=== PATIENT | female | born 1960 | race Caucasian/White ===

== ENCOUNTER 2017-10-02 06:33 | Day surgery (SDC) | payer BC ==
[2017-10-02] MEDS ORDERED: Sodium Chloride 0.9% 1,000 ML IV SCH (07:00)
[2017-10-02] MEDS ORDERED: fentaNYL 100 MCG/2 ML SDV ONE (07:33)
[2017-10-02] MEDS ORDERED: Midazolam 1 MG/ML 2 ML SDV ONE (07:33)
[2017-10-02] MEDS ORDERED: Propofol 200 MG/20 ML SDV ONE (07:33)
[2017-10-02 09:48] VITALS: BP 116/63
--- NOTE | 2017-10-02 17:52 | DISCH ---
DISCHARGE DIAGNOSES: 1. Cholecystitis. 2. Cholelithiasis. 3. Choledocholithiasis. SUMMARY OF HOSPITAL COURSE: A pleasant 57-year-old female had elevated bilirubin, alkaline phosphatase, and liver function tests. The patient was found to have multiple stones in her common bile duct and these were able to extracted laparoscopically. On postoperative day 1, the patient's bilirubin had returned to normal. Liver function tests, AST, and ALT, along with alk phos had also returned to normal/significantly improved. Her pain is well controlled. She has no nausea, vomiting, shortness of breath, or chest pain. FOLLOWUP: Follow up with Surgery in 7 to 14 days. ACTIVITY: No lifting greater than 30 pounds x30 days. DISCHARGE MEDICATIONS: Please see MAR, but include [place] for pain. ADDITIONAL DIAGNOSIS DURING THIS HOSPITALIZATION: None. ADDITIONAL CONSULTATIONS: None.
--- NOTE | 2017-10-02 18:22 | PN ---
DATE OF SERVICE: 10/02/2017 SUBJECTIVE: The patient is doing well. Pain is well controlled. No nausea, vomiting, shortness of breath, or chest pain. OBJECTIVE: VITAL SIGNS: Stable. CARDIOVASCULAR: Regular rhythm and rate. RESPIRATORY: Lungs clear to auscultation bilaterally. ABDOMEN: Incision is healing well. LABORATORY RESULTS: Returned to normal bilirubin. ASSESSMENT: Status post laparoscopic common bile duct exploration and laparoscopic cholecystectomy. PLAN: We will discharge the patient today. We discussed diet and activity. Followup signs and symptoms of complications and the role of the emergency room. Zuhair Beverly MD /[id number]
--- NOTE | 2017-10-04 14:43 | OR ---
DATE OF PROCEDURE: 10/02/2017 PROCEDURE: Colonoscopy. FINDINGS: Normal colonoscopy. PREOPERATIVE DIAGNOSIS: Screening colonoscopy. POSTOPERATIVE DIAGNOSIS: Screening colonoscopy. RISKS: Risks, benefits, alternatives, including, but not limited to infection, bleeding, and perforation were explained to the patient. PROCEDURE IN DETAIL: The patient was placed in left lateral decubitus position. Digital rectal exam was performed without abnormality. Scope was introduced and advanced atraumatically to the ileocecal valve. The scope was brought back to the ascending, transverse, descending colon, and retroflexed. No evidence of old or new blood. No masses. No polyps. No diverticulosis. The patient tolerated the procedure well. ADDRESS: BODY: I am writing this letter in regard to your recent colonoscopy. As we discussed after the procedure, your colonoscopy was normal. There was no evidence of polyps, blood vessel problems or cancer. You will need another colonoscopy in 8 years, as new polyps can occur. We will send you a reminder letter in approximately 8 years, but it is your responsibility to arrange the repeat colonoscopy with your primary care physician, as people move and addresses change, etc. Also, please keep in mind no test is perfect and colonoscopies are no exception. In fact, they can miss up to 10 percent of positive findings including colon cancer. I tell you this not to scare you but to protect you. What to look for is ongoing bleeding, severe changes in bowel function (not occasional diarrhea or constipation) and unintentional weight loss. Again I don't think you will have any problems I just want you to be safe. One last thing I recommend is you should be trying to eat a healthy diet that is high in fiber and low in fat. It is important to eat more fruits and vegetables, avoid smoking, limit alcohol intake, increase exercise, and increase calcium and folate intake. Foods that are rich in calcium include most dairy products, for example, milk and cheese. Foods that are rich in folate are chickpeas, kidney beans, and spinach. If you have any questions, please give me or your primary doctor a call and thank you for allowing me to be your surgeon. Zuhair Beverly MD /[id number]
== END 2017-10-02 09:51 | disposition home or self-care (01) ==
LOC: JP.SDS 06:33
PROVIDERS: ATTEND Surgery
DX: Z12.11 Encounter for screening for malignant neoplasm of colon (principal); K80.10 Calculus of gallbladder with chronic cholecystitis without obstruction; Z90.49 Acquired absence of other specified parts of digestive tract
CPT/HCPCS: 45378; J2250; J2704; J3010; J7040

== ENCOUNTER 2020-01-12 17:15 | Emergency (ER) | payer BC ==
[2020-01-12 17:34] VITALS: BP 128/70; PULSE 108
[2020-01-12] MEDS ORDERED: Acetaminophen/oxyCODONE 325-5 MG Tab PO STA (17:43)
--- NOTE | 2020-01-12 17:52 | EDM.PDOC ---
ED HPI GENERAL MEDICAL PROBLEM - General Chief Complaint: Genitourinary Problem Stated Complaint: KIDNEY OR BLADDER INFECTION?? Time Seen by Provider: 01/12/20 17:35 Source of Information: Reports: Patient, Old Records, RN History Limitations: Reports: No Limitations - History of Present Illness INITIAL COMMENTS - FREE TEXT/NARRATIVE: 59 yo female here with R flank pain and some bladder pressure. Is not aware of fever. No burning. No nausea. Is taking more Aleve than recommended to control the pain. Sx's began yesterday. 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 Pain Score (Numeric/FACES): 5 - Related Data Allergies Allergy/AdvReac Type Severity Reaction Status Date / Time acetaminophen [From [place]] AdvReac Nausea Verified 01/12/20 17:26 hydrocodone bitartrate AdvReac Nausea Verified 01/12/20 17:26 [From [place]] Home Meds: Home Meds Cholecalciferol (Vitamin D3) [Vitamin D3] 2,000 unit PO BID 08/25/15 [History] Citalopram Hydrobromide [Celexa] 40 mg PO DAILY 08/25/15 [History] Gabapentin [Neurontin] 600 mg PO TID 08/25/15 [History] Ibuprofen [Motrin] 800 mg PO Q8H PRN 08/25/15 [History] Levothyroxine Sodium [Synthroid] 112 mcg PO ACBREAKFAST 08/25/15 [History] Multivitamin [Multi-Vitamin Daily] 1 tab PO DAILY 08/25/15 [History] [place]-3 Fatty Acids [Fish Oil] 300 mg PO DAILY 08/25/15 [History] Cholecalciferol (Vitamin D3) [Vitamin D] 2 tab PO DAILY 09/27/17 [History] Vitamin B Complex [B Complex] 1 tab PO DAILY 09/27/17 [History] Naproxen Sodium [Aleve] 440 mg PO PRN 01/12/20 [History] Past Medical History HEENT History: Reports: Impaired 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: Musculoskeletal History: Reports: Arthritis Other Musculoskeletal History: back surgery x 3 Psychiatric History: Reports: Depression Endocrine/Metabolic History: Reports: Hypothyroidism - Infectious Disease History Infectious Disease History: Reports: Chicken Pox - Past Surgical History Head Surgeries/Procedures: Reports: None HEENT Surgical History: Reports: Tonsillectomy GI Surgical History: Reports: Appendectomy Female Surgical History: Reports: Hysterectomy Other Female Surgeries/Procedures: bladder repair Endocrine Surgical History: Reports: Thyroid Biopsy Other Neurological Surgeries/Procedures: back surgery x 2 Musculoskeletal Surgical History: Reports: None Dermatological Surgical History: Reports: None Social & Family History - Family History Family Medical History: Noncontributory - Tobacco Use Smoking Status *Q: Never Smoker - Caffeine Use Caffeine Use: Reports: Coffee, Soda - Recreational Drug Use Recreational Drug Use: No ED ROS GENERAL - Review of Systems Review Of Systems: See Below Constitutional: Reports: No Symptoms HEENT: Reports: No Symptoms Respiratory: Reports: No Symptoms Cardiovascular: Reports: No Symptoms GI/Abdominal: Reports: No Symptoms : Reports: Flank Pain (Right), Other (bladder pressure) Skin: Reports: No Symptoms ED EXAM, RENAL/ - Physical Exam Exam: See Below Exam Limited By: No Limitations General Appearance: Alert, WD/WN, No Apparent Distress Eye Exam: Bilateral Eye: Normal Inspection Ears: Hearing Grossly Normal Nose: Normal Inspection, No Blood Throat/Mouth: Normal Lips, Normal Voice, No Airway Compromise Head: Atraumatic, Normocephalic Neck: Normal Inspection Respiratory/Chest: No Respiratory Distress, Lungs Clear, Normal Breath Sounds, No Accessory Muscle Use Cardiovascular: Regular Rate, Rhythm Back Exam: No: CVA Tenderness (R), CVA Tenderness (L) Extremities: Normal Inspection Neurological: Alert, Oriented, CN II-XII Intact, Normal Cognition, No Motor/ Sensory Deficits Psychiatric: Normal Affect, Normal Mood Skin Exam: Warm, Dry, Intact, Normal Color, No Rash Course - Vital Signs Last Recorded V/S: Last Vital Signs Temp 36.4 C 01/12/20 17:32 Pulse 108 H 01/12/20 17:32 Resp 12 01/12/20 17:32 BP 128/70 01/12/20 17:32 Pulse Ox 99 01/12/20 17:32 - Orders/Labs/Meds Orders: Active Orders 24 hr Category Date Time Status CULTURE URINE [RM] Stat Lab 01/12/20 17:44 Ordered Labs: Laboratory Tests 01/12/20 Range/Units 17:26 Urine Color Yellow (YELLOW) Urine Appearance Cloudy A (CLEAR) Urine pH 6.0 (5.0-8.0) Ur Specific [place] <= 1.005 L (1.008-1.030) Urine Protein Negative (NEGATIVE) mg/dL Urine Glucose (UA) Negative (NEGATIVE) mg/dL Urine Ketones Negative (NEGATIVE) mg/dL Urine Occult Blood Moderate H (NEGATIVE) Urine Nitrite Positive H (NEGATIVE) Urine Bilirubin Negative (NEGATIVE) Urine Urobilinogen 0.2 (0.2-1.0) EU/dL Ur Leukocyte Esterase Large H (NEGATIVE) Urine RBC 0-5 (0-5) Urine WBC 30-40 H (0-5) Ur Epithelial Cells Many Amorphous Sediment Few Urine Bacteria Many Urine Mucus Not seen Meds: Medications Discontinued Medications Generic Name Dose Route Start Last Admin Trade Name Freq PRN Reason Stop Dose Admin Oxycodone/Acetaminophen 1 tab 01/12/20 17:43 Percocet 325-5 Mg PO 01/12/20 17:44 ONETIME STA Departure - Departure Time of Disposition: 17:55 Disposition: Home, Self-Care 01 Condition: Fair Clinical Impression: UTI (urinary tract infection) Qualifiers: Urinary tract infection type: acute cystitis Hematuria presence: without hematuria Qualified Code(s): N30.00 - Acute cystitis without hematuria - Discharge Information *PRESCRIPTION DRUG MONITORING PROGRAM REVIEWED*: No *COPY OF PRESCRIPTION DRUG MONITORING REPORT IN PATIENT LORAINE: No Referrals: Albin Da Silva MD [Primary Care Provider] - Additional Instructions: Take Bactrim DS every 12 hrs. If not a lot better by Monday see your doctor to review your pending urine culture to see if a change in antibiotics is needed. Take no more than 2 Aleve every 8 hrs with food. Add acetaminophen up to 1000 mg every 6 hrs for added relief. Sepsis Event Note - Evaluation Sepsis Screening Result: No Definite Risk - Focused Exam Vital Signs: Vital Signs Temp Pulse Resp BP Pulse Ox 01/12/20 17:32 36.4 C 108 H 12 128/70 99 Date Exam was Performed: 01/12/20 Time Exam was Performed: 17:46 - My Orders Last 24 Hours: My Active Orders 01/12/20 17:44 CULTURE URINE [RM] Stat - Assessment/Plan Last 24 Hours: My Active Orders 01/12/20 17:44 CULTURE URINE [] Stat
== END 2020-01-12 17:59 | disposition home or self-care (01) ==
LOC: JP.ED 17:15
DX: N30.00 Acute cystitis without hematuria (principal); F32.9 Major depressive disorder, single episode, unspecified; E03.9 Hypothyroidism, unspecified; Z88.5 Allergy status to narcotic agent; Z79.899 Other long term (current) drug therapy
CPT/HCPCS: 81001; 87086; 87088; 87186; 99284; A9270

== ENCOUNTER 2021-06-17 17:03 | Observation (INO) | payer BC ==
[2021-06-17] MEDS ORDERED: fentaNYL 100 MCG/2 ML SDV IM ONE (18:17)
--- NOTE | 2021-06-17 18:25 | EDM.PDOC ---
ED HPI GENERAL MEDICAL PROBLEM - General Chief Complaint: Lower Extremity Injury/Pain Stated Complaint: LT LEG PAIN, SWELLING, NUMBNESS Time Seen by Provider: 06/17/21 18:07 Source of Information: Reports: Patient, Family, Old Records, RN Notes Reviewed History Limitations: Reports: No Limitations - History of Present Illness INITIAL COMMENTS - FREE TEXT/NARRATIVE: 61-year-old female presents emergency department day complaint of pain and swelling in her left lower extremity she states it really has gotten worse over the last couple of days. She had an ultrasound earlier in April on April 27 for a mild amount of edema at that time negative for DVT had an MRI of the knee that does show a meniscus tear also a Calvillo's cyst that has ruptured that was done in the first part of May. She states she has been using ibuprofen does follow with orthopedics but both pain and swelling have increased significantly. Left Leg Pain Score (Numeric/FACES): 10 - Related Data Allergies Allergy/AdvReac Type Severity Reaction Status Date / Time acetaminophen [From [place]] AdvReac Nausea Verified 06/17/21 18:00 hydrocodone bitartrate AdvReac Nausea Verified 06/17/21 18:00 [From [place]] Home Meds: Home Meds Citalopram Hydrobromide [Celexa] 40 mg PO DAILY 08/25/15 [History] Gabapentin [Neurontin] 600 mg PO TID 08/25/15 [History] Levothyroxine Sodium [Synthroid] 112 mcg PO ACBREAKFAST 08/25/15 [History] Multivitamin [Multi-Vitamin Daily] 1 tab PO DAILY 08/25/15 [History] [place]-3 Fatty Acids [Fish Oil] 300 mg PO DAILY 08/25/15 [History] Cholecalciferol (Vitamin D3) [Vitamin D] 1 tab PO DAILY 09/27/17 [History] Vitamin B Complex [B Complex] 1 tab PO DAILY 09/27/17 [History] Naproxen Sodium [Aleve] 440 mg PO PRN 01/12/20 [History] Past Medical History HEENT History: Reports: Impaired 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 right knee torn meniscus and bakers cyst Psychiatric History: Reports: Depression Endocrine/Metabolic History: Reports: Hypothyroidism - Infectious Disease History Infectious Disease History: Reports: Chicken Pox - Past Surgical History Head Surgeries/Procedures: Reports: None HEENT Surgical History: Reports: Tonsillectomy GI Surgical History: Reports: Appendectomy Female Surgical History: Reports: Hysterectomy Other Female Surgeries/Procedures: bladder repair Endocrine Surgical History: Reports: Thyroid Biopsy Other Neurological Surgeries/Procedures: back surgery x 2 Musculoskeletal Surgical History: Reports: None Dermatological Surgical History: Reports: None Social & Family History - Family History Family Medical History: No Pertinent Family History - Tobacco Use Tobacco Use Status *Q: Never Tobacco User - Caffeine Use Caffeine Use: Reports: Coffee - Recreational Drug Use Recreational Drug Use: No Review of Systems - Review of Systems Review Of Systems: See Below Respiratory: Reports: No Symptoms Cardiovascular: Reports: No Symptoms Musculoskeletal: Reports: Leg Pain Skin: Reports: No Symptoms ED EXAM, GENERAL - Physical Exam Exam: See Below Free Text/Narrative:: Examination of the lower extremities the left leg is markedly edematous it is very tender to the touch pedal pulses palpable +2 her pain is not out of proportion with dorsiflexion however she does not tolerate much for palpation into the calf Course - Vital Signs Last Recorded V/S: Last Vital Signs Temp 96.7 F L 06/17/21 18:05 Pulse 91 06/17/21 20:48 Resp 18 06/17/21 20:48 BP 167/80 H 06/17/21 20:48 Pulse Ox 100 06/17/21 20:48 - Orders/Labs/Meds Orders: Active Orders 24 hr Category Date Time Status Peripheral IV Care [RC] . DIRECTED Care 06/17/21 20:18 Active VL Duplex Lwr Ext Veins Ltd Lt [US] Stat Exams 06/17/21 18:23 Taken Iopamidol [Isovue-370 (76%)] Med 06/17/21 20:30 Active 100 ml IV . DIRECTED Sodium Chloride 0.9% [Normal Saline] 1,000 ml Med 06/17/21 20:30 Active IV ASDIRECTED Sodium Chloride 0.9% [Normal Saline] 70 ml Med 06/17/21 20:30 Active IV ASDIRECTED Sodium Chloride 0.9% [Saline Flush] Med 06/17/21 20:18 Active 10 ml FLUSH ASDIRECTED PRN Peripheral IV Insertion Adult [OM.PC] Urgent Oth 06/17/21 20:18 Ordered Medication Orders Sodium Chloride (Normal Saline) 70 mls @ 3.5 mls/sec IV ASDIRECTED SUDHIR Last Admin: 06/17/21 20:37 Dose: 3.5 mls/sec Documented by: NARCISO Sodium Chloride (Normal Saline) 1,000 mls @ 500 mls/hr IV ASDIRECTED SUDHIR Last Admin: 06/17/21 20:46 Dose: 500 mls/hr Documented by: ABNER Iopamidol (Iopamidol 755 Mg/Ml 100 Ml Bottle) 100 ml IV . DIRECTED SUDHIR Last Admin: 06/17/21 20:37 Dose: 100 ml Documented by: NARCISO Sodium Chloride (Sodium Chloride 0.9% 10 Ml Syringe) 10 ml FLUSH ASDIRECTED PRN PRN Reason: Keep Vein Open Last Admin: 06/17/21 21:18 Dose: 10 ml Documented by: ABNER Meds: Medications Generic Name Dose Route Start Last Admin Trade Name Freq PRN Reason Stop Dose Admin Sodium Chloride 70 mls @ 3.5 mls/sec 06/17/21 20:30 06/17/21 20:37 Normal Saline IV 3.5 mls/sec ASDIRECTED SUDHIR Administration Sodium Chloride 1,000 mls @ 500 mls/hr 06/17/21 20:30 06/17/21 20:46 Normal Saline IV 500 mls/hr ASDIRECTED SUDHIR Administration Iopamidol 100 ml 06/17/21 20:30 06/17/21 20:37 Iopamidol 755 Mg/Ml 100 Ml Bottle IV 100 ml . DIRECTED SUDHIR Administration Sodium Chloride 10 ml 06/17/21 20:18 06/17/21 21:18 Sodium Chloride 0.9% 10 Ml Syringe FLUSH 10 ml ASDIRECTED PRN Administration Keep Vein Open Discontinued Medications Generic Name Dose Route Start Last Admin Trade Name Freq PRN Reason Stop Dose Admin Fentanyl 50 mcg 06/17/21 18:17 06/17/21 19:00 Fentanyl 100 Mcg/2 Ml Sdv IM 06/17/21 18:18 50 mcg ONETIME ONE Administration Fentanyl 50 mcg 06/17/21 20:18 06/17/21 20:46 Fentanyl 100 Mcg/2 Ml Sdv IVPUSH 06/17/21 20:19 50 mcg ONETIME ONE Administration Departure - Departure Time of Disposition: 21:54 Disposition: Home, Self-Care 01 Condition: Fair Clinical Impression: Hematoma of lower extremity Qualifiers: Encounter type: initial encounter Laterality: left Qualified Code(s): S80.12XA - Contusion of left lower leg, initial encounter - Discharge Information Referrals: Albin Da Silva MD [Primary Care Provider] - Forms: ED Department Discharge Sepsis Event Note (ED) - Evaluation Sepsis Screening Result: No Definite Risk - Focused Exam Vital Signs: Vital Signs Temp Pulse Resp BP Pulse Ox 06/17/21 20:48 91 18 167/80 H 100 06/17/21 18:59 101 H 159/86 H 99 06/17/21 18:20 108 H 143/100 H 100 06/17/21 18:05 96.7 F L 105 H 22 H 155/90 H 100 06/17/21 17:27 96.7 F L 105 H 22 H 155/90 H 100 - My Orders Last 24 Hours: My Active Orders 06/17/21 18:23 VL Duplex Lwr Ext Veins Ltd Lt [US] Stat 06/17/21 20:18 Peripheral IV Care [RC] . DIRECTED Sodium Chloride 0.9% [Saline Flush] 10 ml FLUSH ASDIRECTED PRN Peripheral IV Insertion Adult [OM.PC] Urgent 06/17/21 20:30 Iopamidol [Isovue-370 (76%)] 100 ml IV . DIRECTED Sodium Chloride 0.9% [Normal Saline] 1,000 ml IV ASDIRECTED Sodium Chloride 0.9% [Normal Saline] 70 ml IV ASDIRECTED - Assessment/Plan Last 24 Hours: My Active Orders 06/17/21 18:23 VL Duplex Lwr Ext Veins Ltd Lt [US] Stat 06/17/21 20:18 Peripheral IV Care [RC] . DIRECTED Sodium Chloride 0.9% [Saline Flush] 10 ml FLUSH ASDIRECTED PRN Peripheral IV Insertion Adult [OM.PC] Urgent 06/17/21 20:30 Iopamidol [Isovue-370 (76%)] 100 ml IV . DIRECTED Sodium Chloride 0.9% [Normal Saline] 1,000 ml IV ASDIRECTED Sodium Chloride 0.9% [Normal Saline] 70 ml IV ASDIRECTED Plan: Assessment Acuity = acute Site and laterality = hematoma left leg Etiology = unknown Manifestations = pain Location of injury = Home Lab values = ultrasound is inconclusive CT scan with venous runoff describes adela nicholson alanyusra hematoma 8 x 6 x 15 cm belly of the gastrocnemius muscle Plan Call discussed case Dr. Beverly at 2150 kindly agreed to come evaluate patient hospital for admission plan for surgical invention with hematoma evacuation tomorrow morning This note was dictated using [employer] voice recognition software please call with any questions on syntax or grammar.
[2021-06-17] MEDS ORDERED: Sodium Chloride 0.9% 10 ML Syringe FLUSH PRN (20:18)
[2021-06-17] MEDS ORDERED: fentaNYL 100 MCG/2 ML SDV IVPUSH ONE (20:18)
[2021-06-17] MEDS ORDERED: Sodium Chloride 0.9% 1,000 ML IV SCH (20:30)
[2021-06-17] MEDS ORDERED: Iopamidol 755 Mg/ML 100 ML Bottle IV SCH (20:30)
--- NOTE | 2021-06-17 21:31 | CRLCT ---
For Patients: As a result of the Century Cures Act, medical imaging exams and procedure reports are released immediately into your electronic medical record. You may view this report before your referring provider. If you have questions, please contact your health care provider. Indication: Left lower calf pain and swelling over the past several days with no history of trauma. Pulses intact distally. Technique: Contrast enhanced CT examination of the calf is performed using spiral technique with the uneventful intravenous administration of 100 cc of Isovue 370. 2 millimeter thick sagittal, axial, and coronal sections are obtained. Please note that all CT scans at this facility use dose modulation, iterative reconstruction, and/or weight-based dosing when appropriate to reduce radiation dose to as low as reasonably achievable. Comparison: None available Findings: There is prominent enlargement of the muscle belly of the medial head of the gastrocnemius muscle from a large hematoma. There is a fluid-fluid level, with higher density components layering posteriorly. The hematoma measures 8.6 x 5.2 centimeters in cross-section and approximately 15.8 centimeters in length. A smaller, lower density portion of the hematoma extends inferiorly medial to the Achilles tendon, reaching the level of the superior ankle. There is no sign compromise of the arteries, but the deep veins from the level of the inferior knee through the calf appear to be effaced by the hematoma. There is no sign of extravasation of contrast into the hematoma on today`s study to suggest active bleed. The osseous structures are normal in appearance, with no sign of fracture, dislocation, destructive lesion, or degenerative change of the knee. Impression: Large hematoma in the muscle belly of the medial head of the gastrocnemius muscle. Compression of the veins in the calf, without compression of the arteries in the calf. Please note that all CT scans at this facility use dose modulation, iterative reconstruction, and/or weight-based dosing when appropriate to reduce radiation dose to as low as reasonably achievable. Dictated by Jeremy Porter MD @ 06/17/2021 9:31:[address] Jeremy Porter @ Jun 17 2021 9:31PM
[2021-06-17] MEDS ORDERED: Ondansetron 4 MG/2 ML SDV IVPUSH PRN (21:59)
[2021-06-17] MEDS ORDERED: Scopolamine 1.5 MG Transdermal Patch TRDERM PRN (21:59)
[2021-06-17] MEDS ORDERED: Lactated Ringers 1,000 ML IV SCH (22:00)
[2021-06-17] MEDS ORDERED: Promethazine 12.5 MG in Sodium Chloride 0.9% 50 ML IV PRN (22:00)
[2021-06-17] MEDS ORDERED: diphenhydrAMINE 50 MG/ML SDV IVPUSH PRN (22:00)
[2021-06-17] MEDS ORDERED: fentaNYL 100 MCG/2 ML SDV IVPUSH PRN (22:01)
[2021-06-17] MEDS ORDERED: CHECK SCOPALAMINE PATCH TOP PRN (23:24)
[2021-06-18] MEDS ORDERED: Bupivacaine 0.5% 50 ML MDV ONE (06:55)
[2021-06-18] MEDS ORDERED: Lidocaine 1% with EPINEPHrine 1:100,000 50 ML MDV ONE (06:55)
[2021-06-18] MEDS ORDERED: Propofol 200 MG/20 ML SDV ONE ×2 (07:29→08:21)
[2021-06-18] MEDS ORDERED: Midazolam 1 MG/ML 2 ML SDV ONE (07:29)
[2021-06-18] MEDS ORDERED: fentaNYL 100 MCG/2 ML SDV ONE (07:29)
[2021-06-18] MEDS ORDERED: Levothyroxine 112 MCG Tab PO SCH (07:30)
[2021-06-18] MEDS ORDERED: ceFAZolin 2 GM in Premix Bag 1 BAG IV ONE (08:00)
[2021-06-18] MEDS ORDERED: Multivitamins with Iron/Calcium/Folic Acid/Minerals Tab PO SCH (09:00)
[2021-06-18] MEDS ORDERED: Fish Oil/Omega-3 Fatty Acids 1 Gm Cap PO SCH (09:00)
[2021-06-18] MEDS ORDERED: Citalopram 20 MG Tab PO SCH (09:00)
[2021-06-18] MEDS ORDERED: Cholecalciferol (Vitamin D3) 25 MCG Tab PO SCH (09:00)
[2021-06-18] MEDS ORDERED: Vitamin B Complex Tab PO SCH (09:00)
--- NOTE | 2021-06-18 09:13 | PN ---
DATE OF SERVICE: 06/18/2021 SUBJECTIVE: The patient is doing well. Pain is exactly same as yesterday. No nausea, vomiting, shortness of breath, or chest pain. OBJECTIVE: VITAL SIGNS: Stable. CARDIOVASCULAR: Regular rhythm and rate. RESPIRATORY: Lungs clear to auscultation bilaterally. EXTREMITIES: Left calf is still asymmetrical. ASSESSMENT AND PLAN: To the OR for incision and drainage of hematoma, left leg. We discussed the risks, benefits, alternatives including infection, bleeding, chronic wounds, chronic pain, and other risks not listed here. The patient understands these risks and wishes to proceed. Zuhair Beverly MD /[id number]
--- NOTE | 2021-06-18 09:26 | US ---
VL Duplex Lwr Ext Veins Ltd Lt INDICATION: pain edema FINDINGS: Ultrasound examination of the lower extremity using Doppler and compressive technique demonstrates that the common femoral, superficial femoral and proximal to mid popliteal vein show normal flow and compressibility. Augmentation was unable to be performed over the distal superficial femoral and popliteal vein as well as the proximal calf veins. There is a large complex mass in the popliteal fossa measuring 14.2 x 5.5 x 3.9 cm. There is no internal flow IMPRESSION: Limited evaluation of the proximal calf veins due to a large complex mass in the popliteal fossa. This may most likely represents a complex popliteal cyst possibly with previous hemorrhage. Due to the echodensity solid lesion is not excluded and MRI is recommended No evidence of DVT
--- NOTE | 2021-06-18 09:28 | CONS ---
DATE OF SERVICE: 06/17/2021 REFERRING PHYSICIAN: CONSULTING PHYSICIAN: Zuhair Beverly MD REASON FOR CONSULTATION: Left lower extremity pain. CONSULTING PHYSICIAN: Oscar Driscoll MD. HISTORY OF PRESENT ILLNESS: This is a pleasant 61-year-old female who has had a several-day history of left calf pain. This has increased recently. The patient did have an ultrasound on April 27, which showed some edema in this area. Modified by history of Calvillo cyst aspiration due to rupture. However, she denies any evidence of trauma or any associated injury with this structure. PAST MEDICAL HISTORY: Arthritis, Calvillo cyst as above, back surgery, hypothyroidism, depression. SOCIAL HISTORY: She is not a smoker. FAMILY HISTORY: Noncontributory. REVIEW OF SYSTEMS: GENERAL: Appropriate for condition. HEENT: No symptoms. RESPIRATORY: No shortness of breath. CARDIOVASCULAR: No chest pain. GASTROINTESTINAL: No symptoms. PSYCHIATRIC: History of depression. NEUROLOGIC: No symptoms. The remainder of review of systems was reviewed and is negative. PHYSICAL EXAMINATION: VITAL SIGNS: Temperature 98.1, blood pressure 113/54, pulse 68, respirations 18, 98% on room air. GENERAL: Appropriate for condition. HEENT: Pupils are equal. NECK: Supple. LUNGS: Clear. CARDIOVASCULAR: Regular rhythm and rate. EXTREMITIES: Left leg is asymmetrical compared to the right consistent with concern for hematoma. Palpable dorsalis pedis pulse and posterior tibialis pulses. IMAGING DATA: I did review this, which suggests a 15 cm hematoma. ASSESSMENT AND PLAN: To the OR for hematoma evacuation in the morning. We discussed risks, benefits, alternatives, and limitations including but not limited to infection, bleeding, injury to vital structures and other risks along with chronic wounds, chronic pain were explained to the patient and wished to proceed. Zuhair Beverly MD /[id number]
--- NOTE | 2021-06-18 11:05 | OR ---
DATE OF PROCEDURE: 06/18/2021 SURGEON: Zuhair Beverly MD PROCEDURE: Incision and drainage/evacuation of hematoma with the assistance of ultrasound guidance. COMPLICATION: None. BRAKE HOLDER: None. ANESTHESIA: MAC. RISKS: Risks, benefits, alternatives, and limitations including, but not limited to, infection, bleeding, perforation, injury to blood vessels, and other risks not listed here. PROCEDURE IN DETAIL: The patient was placed in prone position. The left calf was identified using 13 megahertz ultrasound probe. The medial hematoma was identified. An 18- gauge needle was used to introduce into this. This was aspirated and sent for culture. Due to the viscosity of the clot, an incision was made of approximately 8 mm in size. Suction was used along with direct pressure to remove as much hematoma as possible. A 10 flat [place] drain was then placed in there. Dressings were applied. Estimated blood loss less than 5 mL. Approximately 80% of the hematoma could be removed. The patient tolerated the procedure well. Zuhair Beverly MD /[id number]
[2021-06-18 11:18] VITALS: BP 125/59; PULSE 71
== END 2021-06-18 12:01 | disposition home or self-care (01) ==
LOC: JP.ED 17:03 → JP.MS 21:57
PROVIDERS: ADMIT Surgery; ATTEND Surgery
DX: S80.12XA Contusion of left lower leg, initial encounter (principal); E03.9 Hypothyroidism, unspecified; F32.9 Major depressive disorder, single episode, unspecified; Z01.812 Encounter for preprocedural laboratory examination; Z20.822 Contact with and (suspected) exposure to COVID-19; Z88.5 Allergy status to narcotic agent; Z79.899 Other long term (current) drug therapy; Z98.890 Other specified postprocedural states
CPT/HCPCS: 10140; 36415; 73701; 80048; 85025; 87070; 87075; 87205; 87635; 93971; 96372; 96374; 99284; J0690; J2250; J2704; J3010; J3490; J7030; J7120; Q9967; 96365; 96375; 96376; G0378; U0002

== ENCOUNTER 2021-08-09 07:28 | Day surgery (SDC) | payer BC ==
[~2021-08-09 07:28] MED LIST: Bupivacaine 0.5% 30 ML SDV ONE
[2021-08-09] MEDS ORDERED: Nozin Nasal Sanitizer NASBOTH ONE (08:00)
[2021-08-09] MEDS ORDERED: Lactated Ringers 1,000 ML IV SCH (08:00)
[2021-08-09] MEDS ORDERED: ceFAZolin 1 GM in Premix Bag 1 BAG IV ONE (08:30)
[2021-08-09] MEDS ORDERED: fentaNYL 100 MCG/2 ML SDV ONE ×2 (08:37→10:48)
[2021-08-09] MEDS ORDERED: Propofol 200 MG/20 ML SDV ONE (08:37)
[2021-08-09] MEDS ORDERED: Midazolam 1 MG/ML 2 ML SDV ONE (08:37)
[2021-08-09] MEDS ORDERED: Dexamethasone 4 MG/ML SDV ONE (08:39)
[2021-08-09] MEDS ORDERED: Ondansetron 4 MG/2 ML SDV ONE (08:39)
[2021-08-09] MEDS ORDERED: Ketorolac 30 MG/ML SDV ONE (08:39)
[2021-08-09] MEDS ORDERED: Scopolamine 1.5 MG Transdermal Patch TOP SCH (10:07)
[2021-08-09 13:52] VITALS: BP 148/88; PULSE 76
--- NOTE | 2021-08-18 22:30 | OR ---
DATE OF PROCEDURE: 08/09/2021 SURGEON: Camron Bryant MD PREOPERATIVE DIAGNOSIS: Medial meniscus tear, left knee. POSTOPERATIVE DIAGNOSES: 1. Medial meniscus tear, left knee, posterior horn. 2. Chondromalacia, medial femoral condyle, grade 3, and patella grade 2. PROCEDURES: Arthroscopy, left knee, with partial medial meniscectomy, chondroplasty of medial femoral condyle and patella. ANESTHESIA: General. INDICATIONS: Radha is a 61-year-old female with a history of left knee pain with catching and buckling. Examination and imaging are consistent with a tear of the posterior horn of the medial meniscus. She now presents for arthroscopy with partial meniscectomy. Risks, benefits, and potential complications were discussed. DESCRIPTION OF PROCEDURE: After adequate anesthesia was obtained, the patient was placed supine with a tourniquet about the left upper thigh. Left leg was prepped and draped in a sterile fashion and the leg was exsanguinated. Tourniquet was inflated to 300 mmHg pressure. Standard inferior medial and lateral portals were established. The scope was introduced. Patellofemoral joint is inspected. This reveals some grade 2 changes on the main dome of the patella with fraying and fissuring, but no significant cartilage defects. Moving into the medial compartment, fairly significant chondromalacia noted of the medial femoral condyle, grade 3, with some loose flaps. Posterior horn of the meniscus was probed, and this was found to have a radial parrot beak type tear extending back to the capsule. Parrot beak portion is resected with a combination of punch baskets and shaver and taken back to a stable margin. Medial femoral condyle was lightly debrided of the loose articular flaps, taking care not to remove any stable cartilage. Inspection of the remainder of the knee showed intact ACL and PCL, and lateral compartment showed intact meniscus with no articular cartilage damage. All loose fragments were removed. The knee was drained. Scope was withdrawn. Port sites were closed with Monocryl and Steri-Strips and infiltrated with 0.5% Marcaine. Sterile dressing was applied with a light compressive dressing. The patient tolerated procedure well. There were no complications, taken from the operating room in stable condition. Camron Bryant MD /[id number]
== END 2021-08-09 14:01 | disposition home or self-care (01) ==
LOC: JP.SDS 07:28
PROVIDERS: ATTEND Specialist
DX: S83.242A Other tear of medial meniscus, current injury, left knee, initial encounter (principal); M94.262 Chondromalacia, left knee
CPT/HCPCS: 29881; 36415; 80053; 85025; A9270; J0690; J1100; J1885; J2250; J2405; J2704; J3010; J3490; J7120

== ENCOUNTER 2024-04-18 08:57 | Day surgery (SDC) | payer OTHER ==
[~2024-04-18 08:57] MED LIST changes: -Bupivacaine 0.5% 30 ML SDV ONE; +Lidocaine 2% Jelly 10 ML Urojet ONE; +Midazolam 1 MG/ML 2 ML SDV ONE; +Propofol 200 MG/20 ML SDV ONE; +Sodium Chloride 0.9% 10 ML ONE; +Sodium Tetradecyl Sulfate 1% 20 MG/2 ML SDV ONE; +fentaNYL 100 MCG/2 ML SDV ONE
[2024-04-18] MEDS: Sodium Chloride 0.9% 1,000 ML IV SCH (10:00)
[2024-04-18] MEDS ORDERED: Propofol 200 MG/20 ML SDV ONE (10:14)
[2024-04-18] MEDS: Lidocaine 1% w/EPINEPHrine 50 ML, Sodium Bicarbonate 5 MEQ in Sodium Chloride 0.9% 950 ML INJECT SCH (10:25)
[2024-04-18] MEDS: Bupivacaine 0.5% 30 ML SDV ONE (10:35)
[2024-04-18] MEDS: Lidocaine 1% with EPINEPHrine 1:100,000 50 ML MDV ONE (10:35)
[2024-04-18 12:45] VITALS: BP 145/75; PULSE 65
== END 2024-04-18 13:04 | disposition home or self-care (01) ==
LOC: JP.SDS 08:57
PROVIDERS: ATTEND Surgery
DX: I83.11 Varicose veins of right lower extremity with inflammation (principal); I83.12 Varicose veins of left lower extremity with inflammation; M71.20 Synovial cyst of popliteal space [Baker], unspecified knee
CPT/HCPCS: 20611; 36466; 36475; 36476; 75989; 76998; J0665; J1642; J2250; J2704; J3010; J3490; J7030; 01930-QZ